=== PATIENT | female | born 1950 | race Hispanic/Latino ===

== ENCOUNTER 2018-11-17 16:24 | Emergency (ER) | payer BC ==
[~2018-11-17] VITALS: Ht 152.4 cm; Wt 72.1 kg
[~2018-11-17 16:24] MED LIST: DIOVAN80 MG PO; ULTRAM 50MG50 MG PO
--- OUTSIDE RECORDS SUMMARY | 2018-11-17 16:27 | XMS REPORT | Clinical Summary ---
Author Author [facility] Organization [facility] Address Unknown Phone Unavailable Care Team Providers Care Penciller Name Role Phone Daniel London MD PCP Allergies No Known Allergies Medications End Date Status Medication Sig Dispensed Refills Start Date Active traMADol (ULTRAM) 50 mg Take 50 mg by 0 tablet mouth every 6 (six) hours as needed for moderate pain. Active valsartan (DIOVAN) 80 MG Take 80 mg by 0 tablet mouth daily. Active metFORMIN (GLUCOPHAGE) Take 500 mg 0 500 mg tablet by mouth 2 (two) times a day with meals. Active baclofen (LIORESAL) 10 MG Take 10 mg by 0 tablet mouth 3 (three) times a day. Active Problems No known active problems Encounters Care Team Description Date Type Specialty Patricio Saab MD Primary osteoarthritis of left knee (Primary Dx); Acute pain of left knee 01/07/2018 Office Visit Orthopedic Surgery after 11/16/2017 Family History Medical History Relation Name Comments Diabetes Father Stroke Father Cancer Mother bladder Diabetes Mother Relation Name Status Comments Father Mother Social History Date Tobacco Use Types Packs/Day Years Used Never Smoker Smokeless Tobacco: Never Used Alcohol Use Drinks/Week oz/Week Comments No Sex Assigned at Date Recorded Not on file Industry Job Start Date Occupation Not on file Not on file Not on file Travel End Travel History Travel Start No recent travel history available. Last Filed Vital Signs Time Taken Vital Sign Reading - Blood Pressure - - Pulse - - Temperature - - Respiratory Rate - - Oxygen Saturation - - Inhaled Oxygen - Concentration 01/07/2018 2:15 PM CDT Weight 74.8 kg (165 lb) 01/07/2018 2:15 PM CDT Height 152.4 cm (5') 01/07/2018 2:15 PM CDT Body Mass Index 32.22 Plan of Treatment Health Maintenance Due Date Last Done Comments BREAST CANCER SCREENING 2000 COLON CANCER SCREENING 2000 SHINGLES VACCINES (1 of 2000 2) PNEUMOCOCCAL 2015 POLYSACCHARIDE VACCINE AGE 65 AND OVER PNEUMOCOCCAL-13 2015 INFLUENZA VACCINE 05/12/2018 Procedures Comments Procedure Name Priority Date/Time Associated Diagnosis XR KNEE AP STANDING Routine 01/07/2018 Acute pain of left knee BILATERAL 2:19 PM CDT XR KNEE 3 VW LEFT Routine 01/07/2018 Acute pain of left knee 2:19 PM CDT after 11/16/2017 Results * XR Knee Ap Standing Bilateral (01/07/2018 2:19 PM CDT) Narrative Performed At [facility] Standing AP of bilateral knee shows end-stage osteoarthritis in the left knee with marginal osteophytes subchondral sclerosis tibiofemoral subluxation and severe varus deformity. Performing Organization Address [facility] [place] Phone [place] [facility] [address] [place] [address] * XR Knee 3 Vw Left (01/07/2018 2:19 PM CDT) Narrative Performed At [facility] 3 views of the left knee show the end-stage osteoarthritis with large intercondylar spurs and large periarticular spurs on the AP lateral and merchant views in all 3 compartments of the knee. Performing Organization Address [place]/[facility] Phone Number [facility] [address] [place] [address] after 11/16/2017 Insurance Payer Benefit Subscriber ID Type Phone Address Plan / Group BCBS BCBS xxxxxxxxxxxx PPO CHOICE PPO/[employer] PPO Advance Directives Patient has advance care planning documents on file. For more information, sanket pal contact: Boris Zamudio [address] [place] [address]
[2018-11-17] MEDS ORDERED: HYDROCODONE/APAP 10MG-325MG TAB PO ONE (17:45)
--- NOTE | 2018-11-17 19:36 | Diagnostic Imaging Report ---
Radiographs of the left knee - 3 views HISTORY: Pain COMPARISON: None available. FINDINGS: Bones: No acute displaced fracture. Osseous alignment is within normal limits. Joints: Advanced tricompartmental degenerative arthrosis. No osseous erosion Soft tissues: The soft tissues appear unremarkable. IMPRESSION: Advanced tricompartmental degenerative arthrosis. No osseous erosion Signed by: Dr. Esdras Nino M.D. on 11/17/2018 7:32 PM
[2018-11-17] MEDS ORDERED: HYDROCODONE/APAP 10MG-325MG TAB ONE (23:49)
[2018-11-17 23:57] VITALS: BP 145/73
== END 2018-11-18 00:19 | disposition home or self-care (01) ==
LOC: ER 16:24
DX: M79.662 Pain in left lower leg (principal); I83.812 Varicose veins of left lower extremity with pain; I83.91 Asymptomatic varicose veins of right lower extremity; I87.2 Venous insufficiency (chronic) (peripheral); I10 Essential (primary) hypertension; E11.9 Type 2 diabetes mellitus without complications
CPT/HCPCS: 93971; 99283